=== PATIENT | female | born 1950 | race Two or more races ===

== ENCOUNTER 2017-08-18 07:08 | Outpatient (CLI) | payer OTHER | END 2017-08-18 07:15 | disposition home or self-care (01) | LOC: SONOGRAMA 07:08 | DX: E04.1 Nontoxic single thyroid nodule (principal) ==

== ENCOUNTER 2017-09-08 07:56 | Outpatient (CLI) | payer OTHER | END 2017-09-08 08:54 | disposition home or self-care (01) | LOC: NUCLEAR 07:56 | DX: E04.1 Nontoxic single thyroid nodule (principal) | CPT/HCPCS: 78013; A9512 ==

== ENCOUNTER 2020-07-27 11:33 | Outpatient (CLI) | payer OTHER | END 2020-07-27 13:51 | disposition home or self-care (01) | LOC: OFIC 805 11:33 | PROVIDERS: ATTEND Otolaryngology | DX: K21.9 Gastro-esophageal reflux disease without esophagitis (principal); M54.2 Cervicalgia; R09.89 Other specified symptoms and signs involving the circulatory and respiratory systems ==

== ENCOUNTER → 2022-08-08 | Outpatient (CLI) | payer OTHER | END | disposition home or self-care (01) | LOC: TOM 07:08 | DX: K62.5 Hemorrhage of anus and rectum (principal); Z80.0 Family history of malignant neoplasm of digestive organs ==